=== PATIENT | female | born 1945 | race Caucasian/White ===

== ENCOUNTER 2018-10-30 09:44 | Outpatient (RCR) | payer MEDICARE ==
--- NOTE | 2018-10-06 13:39 | NUR ---
10/03/18 Patient in today for Treatment team. Pt presents clean and neat, alert and oriented x 4. Pt is in a bright mood. Pt states she is doing very well and is getting alot of support from group therapy. Pt denies any suicical thoughts at this time. Pt will continue attending IOP 2x/week. Pt will follow up in one month. Treatment team concluded.
--- NOTE | 2018-10-16 13:43 | NUR ---
0827 Call to pts PCP to inquire on obtaining a new H&P. Message left.
--- NOTE | 2018-10-21 07:21 | NUR ---
10/16/18 1209 Call and left message for patients PCP to obtain a recent PCP.
--- NOTE | 2018-10-21 07:47 | NUR ---
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 1125 Call to patients daughter stating that there is no consent to talk to her about her mother. Patients daughter states its ok and that he mom finally answered the phone and had been sleeping. She stated she was worried but everything is okay now.
[2018-10-23 10:33] VITALS: BP 122/74
[~2018-10-30] VITALS: Ht 175.3 cm; Wt 66.2 kg
[~2018-10-30 09:44] MED LIST: CLONAZEP ODT0.5 MG PO; CYCLOBENZAPR5 MG PO; EFFEXOR XR150 MG PO; IMITREX50 M1 PO; KLONOPIN1 MG PO; TRAMADOL HYDROC50 MG PO; WELLBUTRIN XL150 MG PO
== END 2018-10-30 23:59 | disposition still patient (30) ==
LOC: PATHWAYS 09:44
PROVIDERS: ATTEND Specialist
DX: F43.10 Post-traumatic stress disorder, unspecified (principal); F33.8 Other recurrent depressive disorders; F41.1 Generalized anxiety disorder